=== PATIENT | male | born 2000 | race African-American/Black ===

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

== ENCOUNTER 2018-08-23 03:40 | Emergency (ER) | payer OTHER, SELFPAY ==
[2018-08-23] MEDS ORDERED: Ibuprofen 800 MG TAB ONE (03:57)
== END 2018-08-23 04:10 | disposition home or self-care (01) ==
LOC: BURERS 03:40
DX: S46.212A Strain of muscle, fascia and tendon of other parts of biceps, left arm, initial encounter (principal); X50.1XXA Overexertion from prolonged static or awkward postures, initial encounter
CPT/HCPCS: 99283